=== PATIENT | female | born 1980 | race Caucasian/White ===

== ENCOUNTER 2017-11-09 22:07 | Emergency (ER) | payer MEDICAID ==
[~2017-11-09] VITALS: Ht 157.5 cm; Wt 45.8 kg
[2017-11-09] MEDS ORDERED: REMERON15 MG PO (22:12)
[2017-11-09] MEDS ORDERED: BUTALB-APAP-CA1 EACH PO (22:12)
[2017-11-09] MEDS ORDERED: PHENERGAN12.5 M2 RECTAL (22:13)
[2017-11-09] MEDS ORDERED: VISTARIL 25 MG25 M1 PO (22:13)
[2017-11-09 22:43] LABS: ABSOLUTE BASOPHILS 0.1 thou/uL (0.0-0.2); ABSOLUTE EOSINOPHILS 0.1 thou/uL (0.0-0.7); ABSOLUTE LYMPHOCYTES 6.2 thou/uL (0.8-5.3); ABSOLUTE MONOCYTES 0.7 thou/uL (0.0-1.2); ABSOLUTE NEUTROPHILS 6.6 thou/uL (1.6-8.1); BASOPHILS 0.9 %; EOSINOPHILS 0.6 %; HEMATOCRIT 34.9 % (37.0-47.0); LYMPHOCYTES 45.4 %; MCHC 31.6 g/dL (28.0-37.0); MONOCYTES 4.9 %; MPV 6.1 fl. (7.2-11.1); NUCLEATED RBCS 0 /100WBC; PLATELET COUNT* 532 thou/uL (150-400); POLYS 48.2 %; RBC 4.59 mil/uL (4.20-5.00); WBC 13.8 thou/uL (4.0-11.0)
[2017-11-09 22:50] LABS: CALCIUM 8.7 mg/dL (8.5-10.1); CREATININE 0.7 mg/dL (0.6-1.3); POTASSIUM 3.4 mmol/L (3.5-5.1)
[2017-11-09 22:55] LABS: ALBUMIN 3.4 g/dL (3.4-5.0); TOTAL BILIRUBIN 0.1 mg/dL (<0.1-1.0); TOTAL PROTEIN 7.4 g/dL (6.4-8.2)
[2017-11-10 00:35] VITALS: BP 00/00
== END 2017-11-10 00:40 | disposition left against medical advice (07) ==
LOC: M.ERS 22:07
PROVIDERS: Physician Assistant
DX: R10.84 Generalized abdominal pain (principal); K62.5 Hemorrhage of anus and rectum; I10 Essential (primary) hypertension; Z88.1 Allergy status to other antibiotic agents; Z88.5 Allergy status to narcotic agent; Z88.8 Allergy status to other drugs, medicaments and biological substances